=== PATIENT | female | born 1940 | race Caucasian/White ===

== ENCOUNTER → 2018-10-28 20:11 | Outpatient (REF) | payer OTHER, SELFPAY ==
[2018-10-28 20:46] LABS: T4 Total Thyroxine 8.74 ug/dL (5.5-11.0); T7 (Free Thyroxine Index) 2.79 (1.65-3.89); Triiodothryronine T3 Uptake 31.9 % (23.5-40.5)
[2018-10-28 21:00] LABS: Thyroid Stimulating Hormone 2.06 uIU/mL (0.47-4.68)
== END ==
LOC: LAB 20:11
PROVIDERS: Family Provider Family Medicine Geriatric Medicine; PCP Family Medicine Geriatric Medicine; Visit Provider Family Medicine Geriatric Medicine
DX: E05.00 Thyrotoxicosis with diffuse goiter without thyrotoxic crisis or storm (principal)
CPT/HCPCS: 36415; 84436; 84443; 84479

== ENCOUNTER 2021-05-24 10:00 | Day surgery (SDC) | payer MEDICARE, SELFPAY ==
--- NOTE | 2021-05-24 08:01 | PM.PREOP ---
Pre-operative Note COVID-19 COVID-19 status: Negative Interval Note History & Physical reviewed/Exam performed by Physician: Yes Changes to H&P: No
--- NOTE | 2021-05-24 08:01 | PM.OP.1 ---
Operative Date/Time/Diagnoses Date of procedure: 05/24/21 Time of procedure: 11:45 Procedure & Clinicians Procedure: Preoperative diagnoses: 1. Left significantnuclear sclerotic and cortical cataract. 2. Graves disease with strabismus using prism. Postoperative diagnoses: 1. Left Cataract removed by phacoemulsification with placement of posterior chamber intraocular lens. 2. 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 Procedure: Phacoemulsification with posterior chamber intraocular lens implant Surgeon: Karina Morillo MD Complications: None Specimen: None Implant: [id number] Blood loss: None Anesthesia: Retrobulbar with monitored standby Description of procedure: Patient presents with a complaint of decreased vision due to cataract which is affecting activities of daily living for driving and reading. She wears prisms for strabismus due to Graves disease and will need them after surgery. She elects a distance target because of this. The patient wants surgery to improve vision. She understands the extra risk of surgery during the COVID-19 epidemic and wishes to proceed. She has tested COVID 19 virus negative within 72 hours of procedure. The patient was taken to the operating room and given IV sedation. A retrobulbar block consisting of 6 cc of 2% xylocaine without epinephrine mixed half and half with 0.5% Marcaine with 1 cc of hyaluronidase added is placed between the medial and lateral 1/3 of the inferior orbital rim. The eye is manually massaged for 30 sec, prepped using Betadine solution, and draped in the usual sterile fashion. Temporal approach was made, a 1 mm side-port incision was made 90? from the proposed clear corneal incision position. Phenylephrine 1.5% mixed with 1% xylocaine 0.2 cc was placed into the anterior chamber. A corneal endothelial dystrophy was noted in extra viscoelastic was used during the case to help prevent additional swelling if possible Endocoat followed by Healcrow was then placed. A 2.6 mm clear incision with a 2.6 mm blade was placed. A 360 degree capsulorrhexis style capsulotomy was then performed with a cystitome needle on a Healon. Hydrodelineation and hydrodissection were performed. The phacoemulsification unit is introduced, and sculpting notice used to groove the central lens. It is then removed in chopping mode. Epi nucleus is removed with epinuclear mode and irrigation aspiration was used to remove the peripheral cortex. The posterior capsule is polished. The intraocular lens is selected, inspected, power confirmed, and placed in the posterior chamber. The wound was stromally hydrated and tested for leaks, there was none and it was left sutureless. Vigamox 0.1 cc was placed into the anterior chamber. Kenalog 0.2 cc was placed in the superior subconjunctival space. A drop of antibiotic and was placed and the eye was patched and shielded. The patient was stable and returned to the recovery room in excellent condition. Dictated by: Karina Morillo MD Copy to: [facility] Same procedure as scheduled: Yes
[2021-05-24] MEDS: PROPARACAINE 0.5% OPHTH SOL 2 DROPS EYE-OP (10:41)
[2021-05-24] MEDS: CATARACT EYE COMPOUND (10 DROPS/SYRINGE) 3 DROPS EYE-OP ×3 (10:48→10:58)
[2021-05-24 10:59] VITALS: BMI 21.9
[2021-05-24 11:11] VITALS: BP 101/69; PULSE 64; RESP 14; TEMP 36.2; O2SAT 98
--- NOTE | 2021-05-24 13:27 | SUR.OPER ---
Supine on eye stretcher, head on extension cradle and foam donut then secured with tape. Arms tucked at sides with blanket. Pillow under knees. Patient removed her glasses and bilateral hearing aids and placed in personal designated containers then placed in her personal belongings bag in pre-op.
[2021-05-24] MEDS: ERYTHROMYCIN OPHTH 1 GM OINT 1 APPLIC EYE-LEFT (13:30)
[2021-05-24] MEDS: HYALURONATE SODIUM 30 MG-10 MG/ML SYRINGES 1 BOX INTRAOCULA (13:31)
[2021-05-24] MEDS: MOXIFLOXACIN INJ 4 MG/0.8 ML VIAL 0.5 MG EYE-OP (13:31)
[2021-05-24] MEDS: PHENYLEPHRINE/LIDOCAINE VIAL (OR) 0.2 ML EYE-OP (13:31)
[2021-05-24] MEDS: BALANCED SALT IRRIG SOLN NO.2 500 ML, EPINEPHrine 1 MG IRR (13:32)
[2021-05-24] MEDS: TRIAMCINOLONE 50 MG/5 ML VIAL INJ (13:32)
[2021-05-24] MEDS: LIDOCAINE 2% 4 ML, BUPIVACAINE 0.5% (PF) 4 ML, HYALURONIDASE 150 UNIT INJ (13:32)
[2021-05-24 13:59] VITALS: BP 119/69; PULSE 68; RESP 16; TEMP 36.2; O2SAT 97
[2021-05-24 14:35] VITALS: BP 138/74; PULSE 73; RESP 16; TEMP 36.1; O2SAT 99
== END 2021-05-24 14:54 | disposition home or self-care (01) ==
LOC: OR 10:05
PROVIDERS: PCP Family Medicine; Referring Provider Nurse Practitioner; Visit Provider Ophthalmology
PROC: (CPT 66984; principal; 2021-05-24 11:45)
DX: H25.812 Combined forms of age-related cataract, left eye; E05.00 Thyrotoxicosis with diffuse goiter without thyrotoxic crisis or storm
CPT/HCPCS: 66984; J0171; J3301; J3470